=== PATIENT | female | born 1970 | race Caucasian/White ===

== ENCOUNTER → 2016-07-11 | Outpatient (CLI) | payer BC ==
--- NOTE | 2016-07-11 19:09 | DX ---
PA and Lateral Chest on July 11, 2016 Clinical Indications: Shortness of breath in a 45-year-old female; evaluate for evidence of sarcoid. No previous chest films are available for comparison. Findings: The lungs are clear, and no masses are found. Hilar and mediastinal contours are normal wi th no evidence for adenopathy. The heart and pulmonary vessels are normal. There are no pleural effus ions and no pneumothorax. The bones are unremarkable for this age. Impression: Normal. No radiographic findings to suggest sarcoid.
== END ==
LOC: BMCIMAGING 15:59
PROVIDERS: ATTEND Internal Medicine Rheumatology
DX: R06.02 Shortness of breath (principal)